=== PATIENT | male | born 1980 | race Caucasian/White ===

== ENCOUNTER 2020-08-09 15:09 | Emergency (ER) | payer BC, OTHER ==
[~2020-08-09] VITALS: Ht 175.3 cm; Wt 77.1 kg
[2020-08-09 15:14] VITALS: BP 152/99
--- NOTE | 2020-08-09 15:23 | NUR ---
bib [facility] to [facility]
[2020-08-09 15:52] VITALS: BP 152/99
--- NOTE | 2020-08-09 15:52 | NUR ---
PATIENT BIB [employer]. PATIENT EXAMINED BY JUAN CARLOS ANGELES. PATIENT MEDICALLY CLEARED AND RELEASED IN CUSTODY IN STABLE CONDITION. ORIGINAL PRE-BOOK FORM GIVEN TO OFFICER. RX FOR LISINOPRIL GIVEN TO PATIENT.
== END 2020-08-09 15:52 ==
LOC: MED 15:09
DX: I10 Essential (primary) hypertension (principal); F17.290 Nicotine dependence, other tobacco product, uncomplicated
CPT/HCPCS: 99283